=== PATIENT | female | born 1950 | race Hispanic/Latino ===

== ENCOUNTER 2017-05-24 13:47 | Outpatient (CLI) | payer MEDICARE, OTHER ==
--- NOTE | 2017-05-24 15:35 | Ultrasound Report ---
Bilateral mammogram, left breast ultrasound: The patient presents with her physician feeling a paradise-areola nodule on the left. The patient does not palpate this finding. Routine views were obtained and comparison is made to her prior exam in June 2016. There is a slightly patchy distribution of fibroglandular tissue bilaterally in a generally symmetric distribution. There is no focal mass nor architectural distortion. Scattered benign calcifications are noted. These findings are unchanged compared to her prior exam. Images of the left breast in the area of concern demonstrates 2 small adjacent subcutaneous echolucent masses measuring approximately 5 mm each consistent with simple cysts. Mild dilatation of retroareolar ducts is noted. No other significant findings. CAD used. Impressions: Stable mammogram. Subcutaneous retroareolar left breast cysts/dilated ducts. Recommendation: Clinical followup. Annual mammogram followup. BI-RADS CATEGORY: 2 = Benign ACR BI-RADS MAMMOGRAPHIC CODES: 0 = Needs additional imaging evaluation; 1 = Negative; 2 = Benign; 3 = Probably benign; 4 = Suspicious; 5 = Malignant; 6 = Known biopsy-proven malignancy COMMENT: 1. Dense breast tissue, i.e., adenosis, fibrocystic changes, etc., may obscure an underlying neoplasm. 2. Approximately 10% of cancers are not detected with mammography. 3. A negative mammography report should not delay biopsy if a clinically suspicious mass is present.
== END 2017-05-24 13:48 | disposition home or self-care (01) ==
LOC: MAMMO 13:47
PROVIDERS: ATTEND Obstetrics & Gynecology Gynecology
DX: N63 Unspecified lump in breast (principal); R92.1 Mammographic calcification found on diagnostic imaging of breast
CPT/HCPCS: 76642; G0204; 77066